=== PATIENT | female | born 1980 | race Caucasian/White ===

== ENCOUNTER 2021-02-05 14:29 | Emergency (ER) | payer OTHER, SELFPAY ==
--- NOTE | 2021-02-05 14:36 | ED.URI ---
HPI - URI/Sore Throat General Chief Complaint: Upper Respiratory Infection Stated Complaint: Cough, tight chest, sore throat, injuried finger Time Seen by Provider: 02/05/21 14:36 Source: patient and RN notes reviewed History of Present Illness HPI Narrative: Patient is a 40-year-old female who presents the urgent care with complaints of cough, chest congestion and dry skin of the right index finger. Patient states that her symptoms started last and she has been taking allergy and cold medication [id number]. Denies of fever, nausea, vomiting, abdominal pain or headache. Denies of any known exposure to Covid, strep or influenza. Patient states she has been vaccinated for Covid. No other acute complaints. No acute distress noted. Patient aware of the plan of care. Some parts of this dictation were generated by voice recognition software and may contain typographical and/or grammatical inaccuracies. Related Data Home Medications Medication Instructions Recorded Confirmed No Home Medications 02/05/21 02/05/21 Allergies Allergy/AdvReac Type Severity Reaction Status Date / Time No Known Allergies Allergy Verified 02/05/21 15:12 Review of Systems Review of Systems: CONSTITUTIONAL: Denies fever, chills, or sweats. EYES: Denies visual changes, redness, or discharge. ENT: Reports of rhinorrhea, sinus congestion, sore throat CARDIOVASCULAR: Denies chest pain, palpitations, or edema. RESPIRATORY: Reports of cough without dyspnea GASTROINTESTINAL: Denies abdominal pain, nausea, vomiting, or diarrhea. GENITOURINARY: Denies dysuria or hematuria. SKIN: Reports of dry skin to the right index finger MUSCULOSKELETAL: Denies back pain, joint pain, or myalgia. NEUROLOGIC: Denies headache, numbness, or weakness. All other systems reviewed are negative, except as documented in HPI. PMFSH Comments At the time of my signature, I reviewed and agree with the nursing past medical, surgical, social, and family history. There is no relevant family history pertinent to the patient complaint. Exam Narrative: GENERAL: This is a well-nourished, well-developed patient, in no apparent distress. HEAD: normocephalic, atraumatic. EYES: PERRL. Sclera clear/white. Vision is grossly intact. EARS: External ears normal, auditory canals clear and without drainage, TMs normal without perforation. Hearing grossly intact. NOSE: External nose normal with no obvious nasal discharge, bilateral erythemic nares with clear rhinorrhea. THROAT: Mucous membranes moist, posterior pharynx clear. Moderate postnasal drainage NECK: Neck supple CARDIOVASCULAR: Regular rate and rhythm without murmurs, gallops, or rubs. RESPIRATORY: Clear to auscultation. Breath sounds equal bilaterally. No wheezes, rales, or rhonchi. SKIN: Eczema noted from the PIP to the DIP of the right index finger. Warm, intact with no suspicious lesions or rash, good texture and turgor. NEURO: awake, alert, and oriented to person, place and time. There were no obvious focal neurologic abnormalities. EXTREMITIES: No clubbing, cyanosis, or edema. Course Vital Signs Vital signs: Vital Signs Temperature 98.0 F 02/05/21 14:45 Pulse Rate 76 02/05/21 14:45 Respiratory Rate 20 02/05/21 14:45 Blood Pressure 121/81 02/05/21 14:45 Pulse Oximetry 100 02/05/21 14:45 Temperature 98.0 F 02/05/21 14:45 Pulse Rate 76 02/05/21 14:45 Respiratory Rate 20 02/05/21 14:45 Blood Pressure 121/81 02/05/21 14:45 Pulse Oximetry 100 02/05/21 14:45 Reviewed MDM - URI/Sore Throat MDM Narrative Medical decision making narrative: Reviewed lab results with the patient. She is aware that strep swab was negative. Educated patient on culture we will call within 72 hours culture is positive and antibiotics necessary. Advised the patient continue to use of [id number] medication for symptom relief such as Claritin/Zyrtec/Benadryl in conjunction with Flonase nasal spray and
[2021-02-05 14:45] VITALS: BP 121/81; PULSE 76; RESP 20; TEMP 36.7; O2SAT 100
== END 2021-02-05 15:25 | disposition home or self-care (01) ==
PROVIDERS: Emergency Provider Nurse Practitioner Family
DX: J06.9 Acute upper respiratory infection, unspecified (principal); L30.9 Dermatitis, unspecified
CPT/HCPCS: 87081; 87880; 99203; G0463

== ENCOUNTER 2022-02-04 09:56 | Emergency (ER) | payer OTHER, SELFPAY ==
[2022-02-04 10:07] VITALS: BP 121/80; PULSE 107; RESP 16; TEMP 37.1; O2SAT 100
--- NOTE | 2022-02-04 11:01 | ED.URI ---
HPI - URI/Sore Throat General Chief Complaint: Upper Respiratory Infection Stated Complaint: cough sore throat chills Time Seen by Provider: 02/04/22 10:58 Source: patient and RN notes reviewed Mode of arrival: ambulatory Limitations: no limitations History of Present Illness HPI Narrative: 41-year-old female presents with concern for 3 day history of sore throat, body aches, chills, fatigue. She reports cough and chest burning. She reports she has taken Cor[place] without symptom relief. She denies fever or shortness of breath MD elicited complaint: cough and sore throat Related Data Allergies Allergy/AdvReac Type Severity Reaction Status Date / Time No Known Allergies Allergy Verified 02/05/21 15:12 Review of Systems Review of Systems: CONSTITUTIONAL: Reports malaise, chills, fatigue. Denied sweats or fever. EYES: Denies visual changes, redness, or discharge. ENT: Reports rhinorrhea, congestion, sore throat. Denies sinus pain, otalgia CARDIOVASCULAR: Denies chest pain, palpitations, or edema. RESPIRATORY: Reports cough and chest burning. Denies dyspnea. GASTROINTESTINAL: Denies abdominal pain, nausea, vomiting, diarrhea SKIN: Denies rash or itching. MUSCULOSKELETAL: Reports myalgia. NEUROLOGIC: Denies headache. All systems reviewed & are unremarkable except as noted in HPI and below PMFSH Comments At time of signature, agree with nursing past medical, surgical, social and family history. There is no relevant family history pertinent to the presenting complaint Exam Narrative: GENERAL: Nontoxic appearing and in no acute distress. HEAD: Normocephalic EYES: PERRLA, conjunctivae clear ENT: Nares clear, turbinates edematous and erythematous, clear discharge. Mucous membranes moist. TM pearly [place] with sharp light reflex bilaterally; no tragal tenderness. Oropharynx not erythematous without lesions. Tonsils not enlarged and without exudate, no drooling, no hoarseness, no trismus, uvula midline. NECK: Supple. No lymphadenopathy CHEST: Clear to auscultation, breath sounds equal. No wheezing, rhonchi, rales, or stridor. No respiratory distress, speaks in full sentences. Cough noted HEART: Regular rate and rhythm. No murmur heard. SKIN: Warm, dry, no rash. NEURO: Alert and oriented x3. PSYCH: Normal mood and affect Course Course Emergency Course: Patient is aware of diagnosis, understands and agrees to treatment plan. Anticipatory guidance given. Patient agrees to follow-up as directed and is aware of reasons to seek care at the emergency department. Portions of this record may have been created with voice recognition software Level of Care: Express Care Visit Vital Signs Vital signs: Vital Signs Temperature 98.8 F 02/04/22 10:07 Pulse Rate 107 H 02/04/22 10:07 Respiratory Rate 16 02/04/22 10:07 Blood Pressure 121/80 02/04/22 10:07 Pulse Oximetry 100 02/04/22 10:07 Oxygen Delivery Room Air 02/04/22 10:07 Temperature 98.8 F 02/04/22 10:07 Pulse Rate 107 H 02/04/22 10:07 Respiratory Rate 16 02/04/22 10:07 Blood Pressure 121/80 02/04/22 10:07 Pulse Oximetry 100 02/04/22 10:07 Oxygen Delivery Room Air 02/04/22 10:07 Reviewed. MDM - URI/Sore Throat MDM Narrative Medical decision making narrative: Differential diagnosis considered: Dennis virus, strep pharyngitis, allergic rhinitis, upper respiratory tract infection, sinusitis, rhinosinusitis, nasopharyngitis. viral pharyngitis, otitis media, otitis externa, pneumonia, bronchitis, viral cough syndrome, viral syndrome, and influenza. Exam findings show no acute concerns or changes; patient is non-toxic appearing and is in no distress. Patient is appropriate for outpatient treatment and follow-up. Lab Data Attestation: I reviewed the patient's lab results. Labs: Influenza A Screen Negative Reference Range: Negative Influenza B Screen Negative
== END 2022-02-04 11:12 | disposition home or self-care (01) ==
PROVIDERS: Emergency Provider Nurse Practitioner
DX: J40 Bronchitis, not specified as acute or chronic (principal)
CPT/HCPCS: 87081; 87804; 87880; 99213; G0463

== ENCOUNTER 2023-10-02 14:52 | Emergency (ER) | payer OTHER, SELFPAY ==
[2023-10-02 14:58] VITALS: BP 123/69; PULSE 70; RESP 16; TEMP 36.6; O2SAT 99
--- NOTE | 2023-10-02 15:53 | ED.WOUNDLAC ---
HPI - Wound/Laceration General Chief Complaint: Wound/Laceration Stated Complaint: finger left hand History of Present Illness HPI narrative: Pt is a 43 y/o female, presents to with pruritic rash over the left 4th finger and left palmar surface off and on for 3 weeks. she has no pain associated with the area. She does state that she wears gloves all day at work and feels this is causing her symptoms. She denies any additional skin surface rashes, she has no other complaints. She is right-hand dominant. Related Data Home Medications Medication Instructions Recorded Confirmed levothyroxine 50 mcg tablet mcg 10/02/23 Allergies Allergy/AdvReac Type Severity Reaction Status Date / Time No Known Allergies Allergy Verified 02/05/21 15:12 Review of Systems Integumentary/Breasts: Comments: refer to HPI Exam Const: General: cooperative, healthy appearing, comfortable and no acute distress Nutritional Appearance: average body habitus Orientation/consciousness: oriented to person Limitations: no limitations HENMT: Head: normal to inspection Face and sinus: normal facial exam Mouth: Yes Normal oral and palatal mucosa present and Yes lip normal Eyes: General: appearance normal, both eyes and all related structures Eyelids: eyelids normal Neck: Neck: normal visual inspection, full ROM and no meningeal signs Resp: Effort & Inspection: normal respiratory effort Auscultation: clear to auscultation bilaterally Cardio: Rate: regular rate Rhythm: regular rhythm Heart sounds: S1 normal heart sound present and S2 normal heart sound present Skin: Rashes: rashes noted Other: Patient has an eczematous papular rash to the left 4th finger radial side of the middle phalanx, with some vesicular clusters present. There is an eczematous dry area to the palmar surface where she indicates having a previous rash however this appears to be resolving. There is no lymphangitis, no purulent drainage, range of motion is intact at that DIP, PIP and MCP joint of the affected finger Course Course Emergency Course: suspect dyshidrotic eczema, will treat with topical clobetasol, patient is encouraged to avoid wearing gloves on the hand until her symptoms resolved or to inspect her gloves at work and ensure they are no longer using latex products Level of Care: Express Care Visit ([id number]) Vital Signs Vital signs: Vital Signs Temperature 36.6 C 10/02/23 14:58 Pulse Rate 70 10/02/23 14:58 Respiratory Rate 16 10/02/23 14:58 Blood Pressure 123/69 10/02/23 14:58 Pulse Oximetry 99 10/02/23 14:58 Oxygen Delivery Room Air 10/02/23 14:58 Temperature 36.6 C 10/02/23 14:58 Pulse Rate 70 10/02/23 14:58 Respiratory Rate 16 10/02/23 14:58 Blood Pressure 123/69 10/02/23 14:58 Pulse Oximetry 99 10/02/23 14:58 Oxygen Delivery Room Air 10/02/23 14:58 MDM - Wound/Laceration MDM Narrative Medical decision making narrative: clobetasol, PCP follow-up Discharge Plan Discharge Clinical Impression: Dyshidrotic eczema Patient Disposition: Home, Self-Care Condition: Stable Instructions: Antibiotic Form, Dyshidrotic Eczema (ED) Additional Instructions: use clobetasol topical steroid as prescribed. Avoid contact with latex gloves, keep skin clean and dry, follow-up with your primary care provider in 3-5 days if your symptoms are not improving Prescriptions: New clobetasol 0.05 % ointment 1 applic topical BID 14 Days Qty: 30 0RF No Action levothyroxine 50 mcg tablet Follow-up/Referrals: Yohana,Roxanne Martinez NP [Primary Care Provider] - Time of Disposition: 16:02
== END 2023-10-02 16:05 | disposition home or self-care (01) ==
PROVIDERS: Emergency Provider Nurse Practitioner Family; PCP Nurse Practitioner Family
DX: L30.1 Dyshidrosis [pompholyx] (principal)
CPT/HCPCS: 99213; G0463